=== PATIENT | male | born 1985 | race African-American/Black ===

== ENCOUNTER 2020-05-25 15:40 | Outpatient (REF) | payer SELFPAY | END 2020-05-25 15:41 | disposition home or self-care (01) | LOC: HO.LAB 15:40 | PROVIDERS: Visit Provider Internal Medicine | DX: Z20.828 Contact with and (suspected) exposure to other viral communicable diseases (principal) | CPT/HCPCS: C9803; U0003 ==

== ENCOUNTER 2021-06-20 13:41 | Outpatient (RCR) | payer OTHER, SELFPAY | END 2021-11-21 08:16 | disposition home or self-care (01) | LOC: HO.PT 13:41 | PROVIDERS: PCP Internal Medicine; Visit Provider Physician Assistant Medical | DX: S29.012D Strain of muscle and tendon of back wall of thorax, subsequent encounter (principal) ==

== ENCOUNTER 2021-08-09 09:18 | Outpatient (REF) | payer OTHER, SELFPAY ==
[2021-08-09 11:31] LABS: Hematocrit 43.2 % (42.0-52.0); Hemoglobin 13.9 g/dl (14.0-18.0); Mean Corpuscular HGB Conc 32.2 g/dl (31.0-36.0); Mean Corpuscular Hemoglobin 27.9 pg (27.0-33.0); Mean Corpuscular Volume 86.6 fL (80.0-98.0); PLT CLUMP 1; Red Blood Count 4.99 X10*6/uL (4.60-5.80)
[2021-08-09 11:49] LABS: White Blood Count 7.9 X10*3/uL (4.8-10.8)
[2021-08-09 12:04] LABS: Alanine Aminotransferase 50 U/L (0-40); Albumin Level 4.2 g/dL (3.5-5.0); Alkaline Phosphatase 56 U/L (39-117); Anion Gap 10 (12-20); Aspartate Amino Transferase 24 U/L (5-37); Bilirubin Total 0.3 mg/dL (0.0-1.0); Blood Urea Nitrogen 15 mg/dL (9-16); Calcium 9.2 mg/dL (8.4-10.2); Carbon Dioxide 26 mmol/L (22-29); Chloride 107 mmol/L (96-108); Cholesterol 166 mg/dL; Estimated Glomerular Filt Rate > 60; Glucose Fasting 101 mg/dL (60-99); HDL Cholesterol 33 mg/dL; LDL Cholesterol Calculated 113 mg/dl; Potassium 4.3 mmol/L (3.3-5.1); Sodium 139 mmol/L (135-145); Total Protein 7.3 g/dL (6.5-8.0); Triglycerides 103 mg/dL
[2021-08-09 12:06] LABS: TSH reflex Free T4 0.95 uIU/mL (0.32-4.0)
== END 2021-08-09 09:19 | disposition home or self-care (01) ==
LOC: HO.HMGCLDS 09:18
PROVIDERS: PCP Internal Medicine; Visit Provider Internal Medicine
DX: Z00.00 Encounter for general adult medical examination without abnormal findings (principal); I10 Essential (primary) hypertension
CPT/HCPCS: 36415; 80053; 80061; 84443; 85027

== ENCOUNTER 2021-08-18 08:00 | Outpatient (RCR) | payer OTHER, SELFPAY ==
[2021-06-27 14:06] VITALS: BP 178/115; PULSE 104
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
--- NOTE | 2021-09-13 08:45 | MHC.PT.DC ---
[facility] [place] [facility] [place] [facility] [place] [facility] [address] Salvador Javed [address] [phone] F: [phone] F: [phone] F: [phone] F: [phone] Physical Therapy Discharge Report Diagnosis: Strain of thoracic back region Date of Surgery: DOI 06/12/21 Date of Evaluation: 06/27/21 Date of Discharge: 09/13/21 Treatments to Date: 8 Cancellations to Date: 4 No Shows to Date: 2 Discharge Status: Achieved Goals Independent with HEP Discharge Summary: Kodak made good improvements through the course of therapy. He missed his last 2 visits as he was feeling better. He is independent with HEPS. He has therefore been d/c from therapy. Electronically signed by: Shannon Landers PT DPT Please sign and return to therapist. Thank you for your referral.
== END 2021-09-13 08:46 | disposition home or self-care (01) ==
LOC: HO.PT 08:00
PROVIDERS: Visit Provider Physician Assistant Medical
DX: S29.012D Strain of muscle and tendon of back wall of thorax, subsequent encounter (principal)
CPT/HCPCS: 97110; 97112; 97161

== ENCOUNTER → 2021-09-26 16:03 | Outpatient (REF) | payer OTHER, SELFPAY | LOC: HO.SL 16:03 | PROVIDERS: PCP Internal Medicine; Visit Provider Internal Medicine | DX: Z13.89 Encounter for screening for other disorder (principal) ==

== ENCOUNTER 2023-05-09 10:30 | Outpatient (AMB) | payer OTHER, SELFPAY ==
--- NOTE | 2023-05-09 10:44 | MHC.PC.OV ---
Vital Signs 05/09/23 10:51 Height 5 ft 8 in Weight 296 lb BMI 45.0 BP 146/96 H Blood Pressure Location Lt brachial Position Sitting Pulse 81 Pulse Source Pulse Oximeter Pulse Oximetry (%) 97 Oxygen Delivery Method Room Air Intake Visit Reasons: PE. Intake Note: Pt is here today for a PE. Allergies No Known Allergies Allergy (Verified 05/09/23 10:55) Medication List - Last Reconciled 05/09/23 by Carmen Conn MD amlodipine-benazepril 10-40 mg 1 cap PO DAILY metoprolol succinate ER 50 mg PO DAILY sildenafil (Viagra) 50 mg PO DAILY PRN Tobacco use date assessed: 05/09/23 Dental Screening Dental Screen Date: 05/09/23 Did you have a dental visit in the last 12 months?: Yes Did you have a dental problem in the last 6 months where you did not have access to dental care?: No Was dental information given to patient?: Patient has dentist HPI PE. HPI Details Pt presents for PE. Patient has not been compliant taking his medications for hypertension. He denies chest pain shortness of breath headaches. Patient had a sleep study in the past with is CPAP trial but there is no records of the test and patient had never used CPAP machine. He reports witnessed by his girlfriend apnea episodes. [facility] Medical History Sleep apnea Overweight Acute bilateral low back pain Erectile dysfunction Annual physical exam Hypertension Surgical History No pertinent past surgical history Family History Father HTN (hypertension) Mother HTN (hypertension) Social History Housing: Apartment Alcohol intake: never Patient Tobacco Use Status: Never used Tobacco e-Cigarette/Vaping Use: Never Used Current occupational status: unemployed Cognitive needs: No Hearing needs: No Vision needs: Yes Questionnaire Thrive Questionnaire Date Thrive assessed: 08/16/21 AUDIT C Alcohol Use Questionnaire (AUDIT-C) 1. How often do you have a drink containing alcohol?: Never 3. How often do you have six or more drinks on one occasion?: Never Total Score: 0 AZEB-7 AMB Questionnaire AZEB-7 Date AZEB - 7 assessed: 08/16/21 Source: Developed by DrsAmara Min, Marta Scott, Savage Pacheco and colleagues, with an educational raffi from [employer]. Review of Systems Const All systems reviewed & are unremarkable except as noted in HPI and below Reports no additional complaints Eyes Reports no additional complaints ENT Reports no additional complaints Card Reports no additional complaints Resp Reports no additional complaints GI Reports no additional complaints Reports no additional complaints Musc Reports no additional complaints Physical exam (Primary Care) Vital Signs: Last Vital Signs Pulse 81 05/09/23 10:51 BP 146/96 H 05/09/23 10:51 Pulse Ox 97 05/09/23 10:51 Oxygen Delivery Method Room Air 05/09/23 10:51 BMI result Body Mass Index 45.0 Tobacco/Smoking Status: Tobacco use Status Tobacco use date assessed 05/09/23 05/09/23 10:58 Patient Tobacco Use Status Never used Tobacco 05/09/23 10:58 e-Cigarette/Vaping Use Never Used 05/09/23 10:58 Thrive Assessment: Date of Thrive Assessment Date Thrive assessed 08/16/21 05/09/23 10:44 Const General: no acute distress HENMT Mouth: Normal oral and palatal mucosa present Throat: Yes posterior oropharynx normal Neck Neck: Yes no lymphadenopathy and Yes supple Chest Chest palpation & inspection: normal inspection of the chest Resp Effort & Inspection: normal respiratory effort Auscultation: clear to auscultation bilaterally Cardio Rhythm: regular rhythm Heart sounds: S1 normal heart sound present and S2 normal heart sound present GI Inspection: Yes normal to inspection Palpation (GI): Soft to palpation Percussion: Yes normal to percussion Auscultation: normal bowel sounds Assessment and Plan Assessment & Plan (1) Overweight: Code(s): E66.3 - Overweight 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 Add hydralazine 50 mg twice a day. Low sodium diet increase physical activity weight loss discussed with the patient follow-up in 1 month. Patient have a fasting labs today (3) Sleep apnea: Code(s): G47.30 - Sleep apnea, unspecified Plan: Referred for sleep study with CPAP trial (4) Annual physical exam: Code(s): Z00.00 - Encounter for general adult medical examination without abnormal findings Plan: Well-balanced diet regular exercise discussed with the patient Orders: Orders Comprehensive Hansen. Panel Fast Today E66.3 - Overweight, G47.30 - Sleep apnea, unspecified, I10 - Essential (primary) hypertension Lipid Panel Today E66.3 - Overweight, G47.30 - Sleep apnea, unspecified, I10 - Essential (primary) hypertension Complete Blood Count Auto Diff Today E66.3 - Overweight, G47.30 - Sleep apnea, unspecified, I10 - Essential (primary) hypertension RT PSG in-lab sleep titration Today E66.3 - Overweight, G47.30 - Sleep apnea, unspecified, I10 - Essential (primary) hypertension UA w Microscopic Today E66.3 - Overweight, I10 - Essential (primary) hypertension, Z00.00 - Encounter for general adult medical examination without abnormal findings Referrals Nutrition/Dietitian Referral E66.3 - Overweight, I10 - Essential (primary) hypertension Medications: New hydralazine 50 mg PO BID 60 tabs 3RF Changed From amlodipine-benazepril 10-40 mg Future refills pending upcoming appt 1 cap PO DAILY 90 caps 0RF To amlodipine-benazepril 10-40 mg 1 cap PO DAILY 90 caps 0RF From metoprolol succinate ER Future refills pending upcoming appt 50 mg PO DAILY 90 tabs 0RF To metoprolol succinate ER 50 mg PO DAILY 90 tabs 0RF Coding Level of Care Code Est Pt Prev Care 18-39y(87177) Diagnoses Overweight E66.3 Hypertension I10 Sleep apnea G47.30 Annual physical exam Z00.00
[2023-05-09 10:51] VITALS: BP 146/96; PULSE 81; O2SAT 97; BMI 45.0
== END 2023-05-09 11:30 | disposition home or self-care (01) ==
PROVIDERS: PCP Internal Medicine; Visit Provider Internal Medicine
DX: E66.3 Overweight (principal); I10 Essential (primary) hypertension; G47.30 Sleep apnea, unspecified; Z00.00 Encounter for general adult medical examination without abnormal findings
CPT/HCPCS: 99395

== ENCOUNTER 2023-05-09 11:30 | Outpatient (REF) | payer OTHER, SELFPAY ==
[2023-05-09 13:22] LABS: Appearance Urine Clear; Color Urine Dark Yellow; Glucose Urine UA Negative (Negative); Leukocyte Esterase Urine Negative (Negative); Nitrite Urine Negative (Negative); PH 5.5 (5.0-9.0); Specific Gravity - Urine 1.025 (1.005-1.025); Urine Blood Negative (Negative); Urine Ketones Negative (Negative); Urine Protein Trace mg/dL (Neg-Trace)
[2023-05-09 13:25] LABS: Bacteria Urine None Seen (None Seen); Hyaline Casts Urine 0-2 /LPF (0-2); RBC Urine 0-2 /HPF (0-2); Squamous Epithelial Cell Urine 0-2 /HPF (0-2); WBC Urine 0-5 /HPF (0-5)
[2023-05-09 13:38] LABS: Basophils Percent Auto 0.3 % (0-2); Eosinophils Absolute Auto 0.3 X10*3/uL (0.0-0.4); Eosinophils Percent Auto 3.9 % (0-4); Hematocrit 42.5 % (42.0-52.0); Hemoglobin 14.1 g/dl (14.0-18.0); Imm Gran Abs Auto 0.02 X10*3/uL (0.00-0.03); Imm Gran Pct Auto 0.3 % (0.0-0.4); Lymphocytes Absolute Auto 2.4 X10*3/uL (1.2-4.9); Lymphocytes Percent Auto 30.4 % (20-40); MANUAL DIFF FLAG SCAN; Mean Corpuscular HGB Conc 33.2 g/dl (31.0-36.0); Mean Corpuscular Hemoglobin 27.9 pg (27.0-33.0); Monocytes Absolute Auto 0.7 X10*3/uL (0.1-1.2); Monocytes Percent Auto 8.3 % (2-11); Neutrophils Absolute Auto 4.5 x10*3/uL (2.0-8.3); Neutrophils Percent Auto 56.8 % (45-73); PLT CLUMP 1; Red Blood Count 5.06 X10*6/uL (4.60-5.80); Red Cell Distribution Width 13.9 % (11.0-16.0); SCAN SMEAR FLAG 1
[2023-05-09 14:03] LABS: White Blood Count 7.9 X10*3/uL (4.8-10.8)
[2023-05-09 14:05] LABS: SLIDE REVIEW VERIFIED
[2023-05-09 14:17] LABS: Alanine Aminotransferase 123 U/L (0-40); Albumin Level 4.2 g/dL (3.5-5.0); Alkaline Phosphatase 48 U/L (39-117); Anion Gap 13 (12-20); Aspartate Amino Transferase 329 U/L (5-37); Bilirubin Total 0.5 mg/dL (0.0-1.0); Blood Urea Nitrogen 9 mg/dL (9-16); Calcium 9.5 mg/dL (8.4-10.2); Carbon Dioxide 24 mmol/L (22-29); Chloride 106 mmol/L (96-108); Cholesterol 161 mg/dL (<200); Estimated Glomerular Filt Rate > 60; Glucose Fasting 90 mg/dL (60-99); HDL Cholesterol 37 mg/dL (>40); LDL Cholesterol Calculated 111 mg/dL (<100); Sodium 139 mmol/L (135-145); Total Protein 7.6 g/dL (6.5-8.0); Triglycerides 69 mg/dL (<150)
== END 2023-05-09 11:31 | disposition home or self-care (01) ==
LOC: HO.HMGCLDS 11:30
PROVIDERS: PCP Internal Medicine; Visit Provider Internal Medicine
DX: Z00.00 Encounter for general adult medical examination without abnormal findings (principal); I10 Essential (primary) hypertension; E66.3 Overweight; G47.30 Sleep apnea, unspecified
CPT/HCPCS: 36415; 80053; 80061; 81001; 85025

== ENCOUNTER 2023-05-23 10:31 | Outpatient (REF) | payer OTHER, SELFPAY ==
--- NOTE | ~2023-05-23 | US_ITS ---
EXAMINATION: US ABDOMEN LIMITED CLINICAL INFORMATION: Other specified abnormal findings of blood chemistry. COMPARISON: None available. TECHNIQUE: Real-time imaging of the right upper quadrant abdominal viscera. FINDINGS: PANCREAS: Normal. LIVER: Normal. The liver is normal in size. The liver contour is normal. Parenchymal echogenicity is normal. No focal hepatic lesion. There is no intrahepatic biliary duct dilatation seen. GALLBLADDER: Normal. The gallbladder is physiologically distended without evidence of stones, sludge, polyps, wall thickening or pericholecystic fluid. Sonographic Larry sign is negative. COMMON BILE DUCT: Normal in caliber measuring 0.27 cm in diameter. RIGHT KIDNEY: Normal. No hydronephrosis. No renal calculi or focal parenchymal lesions. The kidney measures 11.9 cm in maximum dimension. FREE FLUID: None. US/US abdomen limited IMPRESSION: Unremarkable right upper quadrant ultrasound.
[2023-05-23 14:10] LABS: Alanine Aminotransferase 27 U/L (0-40); Albumin Level 4.1 g/dL (3.5-5.0); Alkaline Phosphatase 48 U/L (39-117); Aspartate Amino Transferase 22 U/L (5-37); Bilirubin Direct 0.2 mg/dL (0.0-0.5); Bilirubin Total 0.4 mg/dL (0.0-1.0); Iron 93 mcg/dL (45-160); Percent Iron Saturation 38 % (15-50); Total Iron Binding Capacity 243 mcg/dL (228-428); Total Protein 7.1 g/dL (6.5-8.0); Unsaturated Iron Binding 150 ug/dL
[2023-05-25 01:59] LABS: Ceruloplasmin 30 mg/dL (18-36)
[2023-05-27 04:35] LABS: HBS Num1 74.23 mIU/mL (0-7.99); HBc Num1 0.06 S/CO (0.00-0.79); HBsAGNum1 0.44 S/CO (0.00-0.99); HIV AB/AG Nonreactive (Nonreactive); HIV Num 1 0.05 S/CO (0.00-0.99); Hepatitis A Antibody IgM 0.28 Index (0-0.79); Hepatitis B Core Antibody Nonreactive (Nonreactive); Hepatitis B Surface Antigen Negative (Negative); ~HepC Num1 0.09 S/CO (0.00-0.79); ~Hepatitis A Antibody IgM Nonreactive (Nonreactive); ~Hepatitis B Surface Antibody REACTIVE (Nonreactive); ~Hepatitis C Antibody Nonreactive (Nonreactive)
[2023-05-27 12:13] LABS: Anti Nuclear Antibody Screen NEGATIVE (NEGATIVE)
[2023-06-05 23:03] LABS: A1A Clinical Indication NG; A1A Referring Physician NG
== END 2023-05-23 10:32 | disposition home or self-care (01) ==
LOC: HO.HMGCX 10:31
PROVIDERS: PCP Internal Medicine; Visit Provider Internal Medicine
DX: Z11.4 Encounter for screening for human immunodeficiency virus [HIV] (principal); R79.89 Other specified abnormal findings of blood chemistry
CPT/HCPCS: 36415; 76705; 80076; 82104; 82390; 82550; 83540; 86038; 86704; 86706; 86709; 86803; 87340; 87389

== ENCOUNTER 2023-08-20 11:06 | Outpatient (AMB) | payer OTHER, SELFPAY ==
[2023-08-20 11:08] VITALS: BP 134/80; PULSE 95; O2SAT 97; BMI 42.4
--- NOTE | 2023-08-20 11:08 | A.OFFPC_ITS ---
Vital Signs 08/20/23 11:08 Height 5 ft 8 in Weight 279 lb BMI 42.4 BP 134/80 Blood Pressure Location Lt brachial Position Sitting Pulse 95 Pulse Source Pulse Oximeter Pulse Oximetry (%) 97 Oxygen Delivery Method Room Air Intake Visit Reasons: blood pressure follow Intake Note: Pt is here today for a follow up visit on BP. Allergies No Known Allergies Allergy (Verified 08/20/23 11:09) Medication List - Last Reconciled 08/20/23 by Carmen Conn MD amlodipine-benazepril 10-40 mg 1 cap PO DAILY hydralazine 50 mg PO BID metoprolol succinate ER 50 mg PO DAILY sildenafil (Viagra) 50 mg PO DAILY PRN Tobacco use date assessed: 08/20/23 Dental Screening Dental Screen Date: 08/20/23 Did you have a dental visit in the last 12 months?: Yes Did you have a dental problem in the last 6 months where you did not have access to dental care?: No Was dental information given to patient?: Patient has dentist HPI blood pressure follow HPI Details Patient presents for the follow-up on hypertension. He has been forgetful taking his medications daily but is hoping to improve. he started exercising at the gym 4 times a week. Patient needs to call to schedule the sleep studies. Patient reports difficulty seeing at night while driving and would like to have an eye exam [facility] Medical History Sleep apnea Overweight Acute bilateral low back pain Erectile dysfunction Annual physical exam Hypertension Surgical History No pertinent past surgical history Family History Father HTN (hypertension) Mother HTN (hypertension) Social History Housing: Apartment Alcohol intake: never Patient Tobacco Use Status: Never used Tobacco e-Cigarette/Vaping Use: Never Used Current occupational status: employed and student Cognitive needs: No Hearing needs: No Vision needs: Yes Questionnaire PHQ-9 Over the last 2 weeks, how often have you been bothered by any of the following problems? 1. Little interest or pleasure in doing things: several days 2. Feeling down, depressed, or hopeless: more than half the days 3. Trouble falling or staying asleep, or sleeping too much: several days 4. Feeling tired or having little energy: several days 5. Poor appetite or overeating: more than half the days 6. Feeling bad about yourself - or that you are a failure or have let yourself or your family down: several days 7. Trouble concentrating on things, such as reading the newspaper or watching television: not at all 8. Moving or speaking so slowly that other people could have noticed. Or the opposite - being so fidgety or restless that you have been moving around a lot more than usual: not at all 9. Thoughts that you would be better off or of hurting yourself in some way: not at all Total score: 8 Depression Screening Interpretation: Negative Depression Screening Done: Yes Source: Developed by Drs. Deepak Min, Marta Scott, Savage Pacheco and colleagues, with an educational raffi from [employer]. Thrive Questionnaire Date Thrive assessed: 08/20/23 I am a: Patient What is your living situation today?: I have a steady place to live Within the past 12 months, did the food you bought not last and you didn't have the money to get more?: Never true Within the past 12 months, did you worry whether your food would run out before you got money to buy more?: Never true Do you have trouble paying for medicines?: No Do you have trouble getting transportation to medical appointments?: No Do you have trouble paying your heating and electricity bill?: Yes Do you have trouble taking care of your child, family member or friend?: No Do you have trouble with day-to-day activities such as bathing, preparing meals, shopping, managing finances, etc.?: No Are you currently unemployed and looking for a job?: No Are you interested in more education?: No THRIVE Score: 1 AUDIT C Alcohol Use Questionnaire (AUDIT-C) 1. How often do you have a drink containing alcohol?: Never 3. How often do you have six or more drinks on one occasion?: Never Total Score: 0 AZEB-7 AMB Questionnaire AZEB-7 Date AZEB - 7 assessed: 08/20/23 Feeling nervous, anxious, or on edge: 2 = More than half the days Not being able to stop or control worryin = Several days Worrying too much about different things: 3 = Nearly every day Trouble relaxin = Several days Being so restless that it is hard to sit still: 0 = Not at all Becoming easily annoyed or irritable: 3 = Nearly every day Feeling afraid as if something awful might happen: 0 = Not at all Total AZEB-7 score (0-4 normal; 5-9 mild; 10-14 moderate; 15-21 severe): 10 Source: Developed by Drs. Deepak Min, Marta Scott, Savage Pacheco and colleagues, with an educational raffi from [employer]. Review of Systems Const All systems reviewed & are unremarkable except as noted in HPI and below Reports no additional complaints Eyes Reports no additional complaints ENT Reports no additional complaints Card Reports no additional complaints Resp Reports no additional complaints GI Reports no additional complaints Reports no additional complaints Physical exam (Primary Care) Vital Signs: Last Vital Signs Pulse 95 08/20/23 11:08 BP 134/80 08/20/23 11:08 Pulse Ox 97 08/20/23 11:08 Oxygen Delivery Method Room Air 08/20/23 11:08 BMI result Body Mass Index 42.4 Tobacco/Smoking Status: Tobacco use Status Tobacco use date assessed 08/20/23 08/20/23 11:15 Patient Tobacco Use Status Never used Tobacco 08/20/23 11:15 e-Cigarette/Vaping Use Never Used 08/20/23 11:08 Depression Screening Interpretation: Negative Thrive Assessment: Date of Thrive Assessment Date Thrive assessed 08/16/21 08/20/23 11:08 Const General: no acute distress HENMT Head: Yes normal to inspection Eyes General: appearance normal, both eyes and all related structures Resp Effort & Inspection: normal respiratory effort Auscultation: clear to auscultation bilaterally Cardio Rhythm: regular rhythm Heart sounds: S1 normal heart sound present and S2 normal heart sound present GI Inspection: Yes normal to inspection Assessment and Plan Assessment & Plan (1) Hypertension: Code(s): I10 - Essential (primary) hypertension Plan: Medication compliance discussed with the patient. Well-balanced diet regular physical activity and weight loss were recommended. Follow-up in 3 months (2) Sleep apnea: Code(s): G47.30 - Sleep apnea, unspecified Plan: Patient will call sleep center to schedule sleep studies Orders: Orders Comprehensive Met. Panel 3 Months I10 - Essential (primary) hypertension Referrals Ophthalmology Referral H53.8 - Other visual disturbances Medications: Refilled sildenafil (Viagra) administer 30 minutes to 4 hours before activity 50 mg PO DAILY PRN 30 tabs 2RF sexual activity Coding Level of Care Code Est Pt Level 3 (72663) Diagnoses Hypertension I10 Sleep apnea G47.30
== END 2023-08-20 11:54 | disposition home or self-care (01) ==
PROVIDERS: PCP Internal Medicine; Visit Provider Internal Medicine
DX: I10 Essential (primary) hypertension (principal); G47.30 Sleep apnea, unspecified
CPT/HCPCS: 99213